=== PATIENT | female | born 1970 | race Caucasian/White ===

== ENCOUNTER 2017-07-24 21:06 | Emergency (ER) | payer MEDICAID ==
[~2017-07-24] VITALS: Ht 167.6 cm; Wt 85.0 kg
[~2017-07-24 21:06] MED LIST: CINN1CAP PO; METF10002 PO
[2017-07-24] MEDS ORDERED: ACETAMINOPHEN 325 MG TABLET ONE (21:56)
[2017-07-24] MEDS ORDERED: ACETAMINOPHEN 325 MG TABLET PO ONE (22:00)
[2017-07-24] MEDS ORDERED: SODIUM CHLORIDE FLUSH 10ML SYR IVF ONE (22:00)
[2017-07-24] MEDS ORDERED: SODIUM CHLORIDE 0.9% 1,000ML IVBOLUS ONE (22:00)
[2017-07-24 22:13] LABS: HEMATOCRIT 39.6 % (34.6-47.8); HEMOGLOBIN 13.5 g/dL (11.7-16.4); WHITE BLOOD COUNT 11.4 x10^3/uL (3.4-10)
[2017-07-24] MEDS ORDERED: KETOROLAC 30 MG/1 ML ONE (22:23)
[2017-07-24 22:24] LABS: ASPARTATE AMINO TRANSFERASE 13 U/L (15-37); BLOOD UREA NITROGEN 17 mg/dL (7-18)
[2017-07-24] MEDS ORDERED: KETOROLAC 30 MG/1 ML IVPush ONE (22:30)
[2017-07-24] MEDS ORDERED: INSULIN REGULAR 100 UNITS/ML, 3ML VIAL SQ-INSULIN ONE (23:00)
[2017-07-24] MEDS ORDERED: INSULIN SINGLE DOSE, ER SQ-INSULIN ONE (23:23)
[2017-07-25 00:43] VITALS: BP 122/74
== END 2017-07-25 00:46 | disposition home or self-care (01) ==
LOC: ED 22:27
DX: A41.9 Sepsis, unspecified organism (principal); B34.9 Viral infection, unspecified; E11.65 Type 2 diabetes mellitus with hyperglycemia; Z90.710 Acquired absence of both cervix and uterus
CPT/HCPCS: 36415; 80053; 81003; 83605; 85025; 96361; 96372; 96374; 99291; J1885; J7030

== ENCOUNTER 2019-12-31 17:32 | Emergency (ER) | payer MEDICAID ==
[~2019-12-31] VITALS: Ht 167.6 cm; Wt 76.0 kg
[2019-12-31] MEDS ORDERED: METHOCARBAMOL 750 MG TABLET ONE (18:26)
[2019-12-31] MEDS ORDERED: METHOCARBAMOL 750 MG TABLET PO ONE (18:30)
[2019-12-31 18:50] LABS: MICROSCOPIC NOT IND
[2019-12-31 18:56] VITALS: BP 136/80
[2019-12-31 18:59] LABS: CULTURE INDICATED? NO
--- NOTE | 2019-12-31 18:59 | NUR ---
REPORT RECEIVED FROM JAKOB CHANEL. PLAN OF CARE DISCUSSED. THIS IS A 49 YO FEMALE COMING IN FOR "UPPER SHOULDER BLADE AND MIDDLE BACK MUSCLE SPASMS FOR THE PAST COUPLE DAYS", SIGNIFICANT OTHER AT BEDSIDE RUBBING SHOUDLER OUT WITH MILD RELIEF TO PATIENT. PATIENT ALSO C/O "ITCHING IN MY VAGINA. IT FEELS LIKE A YEAST INFECTION, I'VE HAD A LOT YEAST INFECTIONS AND UTI'S IN THE PAST". DENIES ABD PAIN, DENIES PROBLEMS URINATING. VSS, NAD NOTED, PATIENT MEDICATED BY JAKOB CHANEL PER [facility]AR.
== END 2019-12-31 19:39 | disposition home or self-care (01) ==
LOC: ED 19:33
DX: M54.2 Cervicalgia (principal); B37.3 Candidiasis of vulva and vagina; E11.65 Type 2 diabetes mellitus with hyperglycemia
CPT/HCPCS: 81003; 99283

== ENCOUNTER 2020-03-08 14:57 | Emergency (ER) | payer MEDICAID ==
[~2020-03-08] VITALS: Ht 172.7 cm; Wt 73.0 kg
--- NOTE | 2020-03-08 15:07 | NUR ---
PT TO ROOM 25 PER PEDIS. PT DENIES ANY ONE COMPLAINT, NEEDS CLEARANCE FOR CHILD SUPERVISION. NEED FLU TESTING DONE.
[2020-03-08] MEDS ORDERED: ACETAMINOPHEN 500 MG TABLET ONE (15:27)
[2020-03-08] MEDS ORDERED: ACETAMINOPHEN 500 MG TABLET PO ONE (15:30)
--- NOTE | 2020-03-08 15:36 | NUR ---
PO MEDICATIONS GIVEN WITHOUT DIFF.
[2020-03-08 15:58] LABS: BASOPHILS # (AUTO) 0.03 x10^3/uL (0-0.1); BASOPHILS % (AUTO) 0 % (0-1); EOSINOPHILS # (AUTO) 0.06 x10^3/uL (0-0.4); EOSINOPHILS % (AUTO) 1 % (1-7); LYMPHOCYTES % (AUTO) 25 % (22-44); MD NO; MEAN CORPUSCULAR HEMOGLOBIN 29.9 pg (27.0-34.8); MEAN CORPUSCULAR HGB CONC 33.7 g/dL (32.4-35.8); MEAN CORPUSCULAR VOLUME 88.8 fL (80-100); MEAN PLATELET VOLUME 8.8 fL (7.4-10.4); MONOCYTES % (AUTO) 4 % (2-9); NEUTROPHILS # (AUTO) 4.94 x10^3/uL (1.8-6.8); NEUTROPHILS % (AUTO) 69 % (42-75); PLATELET COUNT 359 x10^3/uL (130-400); RED BLOOD COUNT 5.14 x10^6/uL (3.82-5.3); RED CELL DISTRIBUTION WIDTH 12.6 % (9.6-15.2)
[2020-03-08 16:09] LABS: ALANINE AMINOTRANSFERASE 15 U/L (12-78); ALBUMIN 2.9 g/dL (3.4-5.0); ANION GAP 6 mmol/L (5-15); CALCIUM 8.5 mg/dL (8.5-10.1); CHLORIDE 104 mmol/L (98-107); CREATININE 1.01 mg/dL (0.55-1.02)
[2020-03-08 16:11] LABS: ALKALINE PHOSPHATASE 87 U/L (45-117); BILIRUBIN,TOTAL 0.7 mg/dL (0.2-1.0); TOTAL PROTEIN 6.8 g/dL (6.4-8.2)
--- NOTE | 2020-03-08 16:17 | NUR ---
LUNCH RN: PT AMBULATED TO RESTROOM WITH STEADY GAIT TO PROVIDE URINE SAMPLE. UA COLLECTED AND SENT TO LAB.
--- NOTE | 2020-03-08 16:44 | NUR ---
PT RESTING IN ROOM, AWAITING TEST RESULTS. DENIES ANY NEEDS AT THIS TIME.
[2020-03-08 17:00] LABS: CULTURE INDICATED? YES; MICROSCOPIC INDICATED
--- NOTE | 2020-03-08 17:41 | NUR ---
DISCHARGE INSTRUCTIONS GIVEN TO PATIENT WITH ONE PRESCRIPTION. PT VERBALIZES UNDERSTANDING OF ALL INSTRUCTIONS AND FOLLOW UP. PT AMBULATED OUT OF ED PER PEDIS WITH STRONG STEADY GAIT.
[2020-03-08 17:44] VITALS: BP 112/77
== END 2020-03-08 17:46 | disposition home or self-care (01) ==
LOC: ED 15:10
DX: E11.65 Type 2 diabetes mellitus with hyperglycemia (principal); R11.2 Nausea with vomiting, unspecified; R19.7 Diarrhea, unspecified; R06.00 Dyspnea, unspecified; R06.02 Shortness of breath
CPT/HCPCS: 36415; 71045; 80053; 81001; 81025; 85025; 87077; 87086; 87186; 93005; 99285

== ENCOUNTER 2020-06-04 21:55 | Emergency (ER) | payer MEDICAID ==
[~2020-06-04] VITALS: Ht 167.6 cm; Wt 69.6 kg
[2020-06-04] MEDS ORDERED: CEFTRIAXONE 250 MG IM ONE (23:30)
[2020-06-04] MEDS ORDERED: AZITHROMYCIN 500 MG TABLET PO ONE (23:30)
[2020-06-04 23:44] LABS: CLUE CELLS NONE SEEN (NONE SEEN)
[2020-06-04 23:45] LABS: WET PREP WBCS NONE SEEN (FEW)
[2020-06-04] MEDS ORDERED: CEFTRIAXONE 250 MG ONE (23:49)
[2020-06-04] MEDS ORDERED: AZITHROMYCIN 250 MG TABLET ONE (23:49)
[2020-06-05] MEDS ORDERED: FLUCONAZOLE 100 MG TABLET PO ONE
[2020-06-05] MEDS ORDERED: FLUCONAZOLE 100 MG TABLET ONE (00:19)
[2020-06-05 01:03] VITALS: BP 142/76
== END 2020-06-05 01:04 | disposition home or self-care (01) ==
LOC: ED 22:25
DX: E11.65 Type 2 diabetes mellitus with hyperglycemia (principal); B37.9 Candidiasis, unspecified
CPT/HCPCS: 36415; 82962; 84703; 87210; 87491; 87591; 87808; 96372; 99283; J0696